=== PATIENT | female | born 1995 | race Caucasian/White ===

== ENCOUNTER 2016-06-11 14:22 | Emergency (ER) | payer SELFPAY ==
[2016-06-11 14:28] VITALS: TEMP 97.9; BMI 31.9
[2016-06-11] MEDS ORDERED: KETOROLAC TROMETHAMINE 30 MG/1 ML VIAL IVPUSH ONE (15:54)
[2016-06-11] MEDS ORDERED: METOCLOPRAMIDE HCL INJECTION 10 MG/2 ML VIAL IVPB ONE (15:54)
[2016-06-11] MEDS ORDERED: METOCLOPRAMIDE HCL INJECTION 10 MG/2 ML VIAL ONE (16:19)
[2016-06-11] MEDS ORDERED: KETOROLAC TROMETHAMINE 30 MG/1 ML VIAL ONE (16:19)
[2016-06-11 17:28] LABS: URINE APPEARANCE TURBID; URINE BILIRUBIN NEGATIVE (NEGATIVE); URINE COLOR DKYELLOW; URINE GLUCOSE (UA) NEGATIVE (NEGATIVE); URINE KETONE TRACE (NEGATIVE); URINE NITRITE NEGATIVE (NEGATIVE); URINE UROBILINOGEN NEGATIVE E.U./dl (0.2-1.0)
--- NOTE | 2016-06-11 17:33 | PDOC ---
History of Present Illness - General Chief Complaint: Headache Stated Complaint: Migraine Headache Time Seen by Provider: 06/11/16 15:52 History Source: Patient - History of Present Illness Severity: Yes: severe Associated Symptoms: reports: nausea/vomiting. denies: vision changes Past History - Past Medical History Allergies/Adverse Reactions: Allergies Allergy/AdvReac Type Severity Reaction Status Date / Time mcelroy flavor Allergy Verified 06/11/16 14:29 cyclobenzaprine HCl Allergy Verified 06/11/16 14:29 [From Flexeril] hydromorphone HCl Allergy Verified 06/11/16 14:29 [From Dilaudid] Home Medications: Ambulatory Orders Montelukast Na [Singulair -] 10 mg PO HS 06/11/16 Paroxetine HCl [Paxil] 20 mg PO DAILY 06/11/16 Salmeterol/Fluticasone [Advair 250Mcg/50Mcg] 1 inh PO BID 06/11/16 Asthma: Yes - Surgical History Abdominal Surgery: Yes (TOTAL COLECTOMY 12/13) Cholecystectomy: Yes - Psycho/Social/Smoking Cessation Hx Suicidal Ideation: No Smoking History: Never smoked Hx Alcohol Use: No Drug/Substance Use Hx: No Review of Systems - Review of Systems Constitutional: No: Chills, Fever Neurological: Yes: Headache, Dizziness *Physical Exam - Vital Signs Last Vital Signs Temp Pulse Resp BP Pulse Ox 97.9 F 89 16 124/63 97 06/11/16 14:25 06/11/16 14:25 06/11/16 14:25 06/11/16 14:25 06/11/16 14:25 - Physical Exam General Appearance: Yes: Appropriately Dressed, Mild Distress HEENT: positive: Normal Voice Neck: positive: Supple Respiratory/Chest: negative: Respiratory Distress Integumentary: positive: Dry, Warm Neurologic: positive: Fully Oriented, Alert, Normal Mood/Affect, Motor Strength /5 ED Treatment Course - ADDITIONAL ORDERS Additional order review: Laboratory Results 06/11/16 16:44 Urine HCG, Qual Negative - Medications Given in the ED: ED Medications Discontinued Medications Generic Name Dose Route Start Last Admin Trade Name Freq PRN Reason Stop Dose Admin Ketorolac Tromethamine 30 mg 06/11/16 15:54 06/11/16 16:35 Toradol Injection - IVPUSH 04/13/17 15:55 30 mg ONCE ONE Administration Metoclopramide HCl 10 mg 06/11/16 15:54 06/11/16 16:35 Reglan Injection - IVPB 06/11/16 15:55 10 mg ONCE ONE Administration Medical Decision Making - Medical Decision Making 06/11/16 17:33 06/11/16 17:43 20-year-old female, endorses h/o chronic MORALES and self dx w/ migraines, though has never been officially diagnosed, here with usual headache that has been mostly constant 2 weeks. Pain located to frontal aspect of head, throbbing in nature and associated with dizziness, blurry vision and nausea/vomiting, similar to HAs in the past. Has been taking Excedrin which has helped in the past but not helping currently. States in the past when headache has gotten bad enough she usually presents to ED or urgent care center. No neck pain, URI symptoms, fever or chills. See exam Chronic MORALES No neuro/pmd evaluation in the past Endorse strong fmhx of migraines and has sxs suggestive of same Stable in ED w/ no neuro deficits or s/o infxn -Reglan/toradol/IVF -reassess -anticipate dc w/ neuro referral 06/11/16 17:48 06/11/16 18:03 Pt reports feeling significantly better w/ meds. Stable for discharge w/ neuro f /u *DC/Admit/Observation/Transfer Diagnosis at time of Disposition: Chronic headache Qualifiers: Headache type: unspecified Intractability: not intractable Qualified Code(s): R51 - Headache - Discharge Dispostion Disposition: HOME Condition at time of disposition: Improved - Referrals Referrals: Nilda Padilla MD [Staff Physician] - - Patient Instructions Printed Discharge Instructions: Migraine -- Adult Additional Instructions: Take 1000mg tylenol or 800mg motrin at onset of headaches Please follow with neurology (Dr Padilla) for further evaluation
[2016-06-11 17:55] LABS: URINE BLOOD 1+ (NEGATIVE); URINE LEUK ESTERASE 3+ (NEGATIVE); URINE PROTEIN 1+ (NEGATIVE)
[2016-06-11 18:21] LABS: URINE BACTERIA MANY /hpf (NONE SEEN); URINE MUCUS MANY; URINE RBC 6 /hpf (0-3); URINE WBC 161 /hpf (3-5); YEAST FEW
[2016-06-11 18:34] VITALS: BP 104/57; PULSE 66
== END 2016-06-11 18:25 | disposition home or self-care (01) ==
LOC: JER 14:22
PROC: 3E0333Z Introduction of Anti-inflammatory into Peripheral Vein, Percutaneous Approach (ICD-10-PCS; principal; 2016-06-11)
PROC: 3E033GC Introduction of Other Therapeutic Substance into Peripheral Vein, Percutaneous Approach (ICD-10-PCS; 2016-06-11)
DX: R51 Headache (principal)
CPT/HCPCS: 81003; 81015; 84703; 99282-25